=== PATIENT | female | born 1990 | race Caucasian/White ===

== ENCOUNTER 2017-11-03 11:32 | Emergency (ER) | payer OTHER ==
--- NOTE | 2017-11-03 12:40 | ED Physician Documentation ---
History of Present Illness - Stated complaint Stated Complaint: BACK BX - Chief complaint Chief Complaint: Back Pain - Additonal information Additional information: hx from pt no specific injury but low back pain and limited ROM and some pain that radiates down posterior thigh almost to the knee no fever no urinary sx no abd pain no numbness or weakness her brother sugegsted she might need a MRI so she came to the ER Review of Systems Constitutional: denies: Fever, Chills Cardiac: denies: Chest pain / pressure Respiratory: denies: Dyspnea GI: denies: Abdominal Pain : reports: Control (depo). denies: Unable to Void, Now EGA Musculoskeletal: reports: Back pain Neurologic: denies: Focal weakness, Numbness Immunocompromised: denies: Immunocompromised PD PAST MEDICAL HISTORY - Past Medical History Past Medical History: No - Past Surgical History Past Surgical History: No - Present Medications Home Medications: Ambulatory Orders Medication Instructions Recorded Confirmed Cyclobenzaprine [Flexeril] 10 mg PO TID PRN #20 tablet 11/03/17 Lidocaine Patch 5% [Lidoderm Patch] 1 each TOP DAILY PRN #10 patch 11/03/17 predniSONE [Deltasone] 40 mg PO DAILY 5 Days #10 tablet 11/03/17 - Allergies Allergies/Adverse Reactions: Allergies Allergy/AdvReac Type Severity Reaction Status Date / Time No Known Drug Allergies Allergy Verified 11/03/17 11:37 - Social History Does the pt smoke?: No Smoking Status: Never smoker Does the pt drink ETOH?: Yes Does the pt have substance abuse?: No - Immunizations Immunizations are current?: Yes PD ED PE NORMAL - Vitals Vital signs reviewed: Yes - Cardiac Cardiac: RRR - Respiratory Respiratory: No respiratory distress - Back Back: No CVA TTP, No spinal TTP, Other (diffuse low back soft tissue TTP and limited ROM especially extension) - Neuro Neuro: Other (hip flexion, knee ext foot dorsi plantar felxion and great toe ext 5/5, denies saddle anesthesia, patellar DTR 3/4 dequan, neg SLR (only hurts to knee)) Results - Vitals Vitals: Vital Signs - 24 hr 11/03/17 11:36 Temperature 36.7 C Heart Rate 99 Respiratory 20 Rate Blood Pressure 129/98 H O2 Saturation 99 Oxygen O2 Source Room air PD MEDICAL DECISION MAKING - ED course ED course: explained to pt that usual course of action is conservative tx with meds PT ec and only MRI if sx not improving and typically only MRI from ED for severe trauma - Sepsis Event Vital Signs: Vital Signs - 24 hr 11/03/17 11:36 Temperature 36.7 C Heart Rate 99 Respiratory 20 Rate Blood Pressure 129/98 H O2 Saturation 99 Oxygen O2 Source Room air Departure - Departure Disposition: 01 Home, Self Care Clinical Impression: Back pain Qualifiers: Back pain location: low back pain Chronicity: acute Back pain laterality: bilateral Sciatica presence: with sciatica Sciatica laterality: sciatica of left side Qualified Code(s): M54.42 - Lumbago with sciatica, left side Condition: Good Instructions: ED Sciatica, ED Spasm Back No Trauma Prescriptions: Cyclobenzaprine [Flexeril] 10 mg PO TID PRN #20 tablet PRN Reason: Spasms Lidocaine Patch 5% [Lidoderm Patch] 1 each TOP DAILY PRN #10 patch PRN Reason: Pain predniSONE [Deltasone] 40 mg PO DAILY 5 Days #10 tablet Comments: The steroids will decrease the nerve inflammation and ease the sciatica pain. The muscle relaxant will ease the spasms and tightness And the lidocaine patches can be applied one patch per day to the area that hurts to most for up to 12 hr a day Physical therapy would also be helpful If the symptoms don't get better please follow up with your PMD to discuss gettign a MRI If worse (fever, numbness, weakness, leaking urine) come back to the ER Forms: Activity restrictions
[2017-11-03] MEDS ORDERED: LIDOCAINE PATCH 5% TOP PRN (12:42)
[2017-11-03] MEDS ORDERED: DEXAMETHASONE 10 MG/ML VIAL PO STA (12:42)
[2017-11-03] MEDS ORDERED: KETOROLAC 60 MG/2 ML VIAL IM STA (12:42)
[2017-11-03 12:44] LABS: BILIRUBIN,URINE NEGATIVE (NEGATIVE); GLUCOSE, URINE (UA) NEGATIVE (NEGATIVE); KETONES,URINE (UA) NEGATIVE (NEGATIVE); LEUKOCYTE ESTERASE, URINE NEGATIVE (NEGATIVE); NITRITE,URINE NEGATIVE (NEGATIVE); OCCULT BLOOD,URINE NEGATIVE (NEGATIVE); PH,URINE 5.5 PH (5.0-7.5); PROTEIN,URINE NEGATIVE (NEGATIVE); UROBILINOGEN,URINE 0.2 (NORMAL) E.U./dL (NORMAL)
[2017-11-03 12:50] LABS: CLARITY,URINE CLEAR (CLEAR); HCG UR QUAL NEGATIVE
[2017-11-03 13:23] VITALS: BP 140/90
== END 2017-11-03 13:21 | disposition home or self-care (01) ==
LOC: ED 11:32
DX: M54.42 Lumbago with sciatica, left side (principal)
CPT/HCPCS: 81003; 81025; 96372; 99282; 99283; A9270; 81001; 87086